=== PATIENT | female | born 1950 | race Caucasian/White ===

== ENCOUNTER → 2020-10-10 | Outpatient (CLI) | payer MEDICARE | END | disposition home or self-care (01) | LOC: STAR 11:13 | PROVIDERS: ATTEND Internal Medicine Gastroenterology | DX: Z01.818 Encounter for other preprocedural examination (principal); D12.0 Benign neoplasm of cecum | CPT/HCPCS: 93005 ==

== ENCOUNTER 2020-10-18 07:10 | Day surgery (SDC) | payer MEDICARE ==
[~2020-10-18] VITALS: Ht 165.1 cm; Wt 110.4 kg
[2020-10-18] MEDS ORDERED: CHLORHEXIDINE 15 ML UDC ONE (07:25)
[2020-10-18] MEDS ORDERED: LACTATED RINGERS 1,000 ML IV SCH (07:30)
[2020-10-18] MEDS ORDERED: CHLORHEXIDINE 15 ML UDC PO ONE (07:30)
[2020-10-18] MEDS ORDERED: PROPOFOL 50 ML ONE (08:19)
[2020-10-18] MEDS ORDERED: SIMETHICONE DROPS 40 MG/0.6 ML BOTTLE ONE (09:15)
[2020-10-18] MEDS ORDERED: KETOROLAC 30 MG/1 ML IV PRN (09:30)
[2020-10-18] MEDS ORDERED: ONDANSETRON 2MG/ML, 2ML IVPush PRN (09:30)
[2020-10-18] MEDS ORDERED: FENTANYL PF 100 MCG/2ML IV PRN (09:30)
[2020-10-18] MEDS ORDERED: ACETAMINOPHEN 325 MG TABLET PO PRN (09:30)
[2020-10-18] MEDS ORDERED: MEPERIDINE/PF 25MG/0.5ML IVPush PRN (09:30)
== END 2020-10-18 12:15 | disposition home or self-care (01) ==
LOC: OUT 07:10
PROVIDERS: ATTEND Internal Medicine Gastroenterology
DX: D12.0 Benign neoplasm of cecum (principal); K64.8 Other hemorrhoids; K57.30 Diverticulosis of large intestine without perforation or abscess without bleeding; E66.01 Morbid (severe) obesity due to excess calories; Z20.822 Contact with and (suspected) exposure to COVID-19; Z79.899 Other long term (current) drug therapy
CPT/HCPCS: 45381; 45385; 88305; J2704; J7120; U0003; U0005

== ENCOUNTER → 2020-11-22 | Outpatient (CLI) | payer MEDICARE | END | disposition home or self-care (01) | LOC: STAR 15:33 | PROVIDERS: ATTEND Surgery | DX: Z20.822 Contact with and (suspected) exposure to COVID-19 (principal) | CPT/HCPCS: U0003; U0005 ==

== ENCOUNTER 2020-11-26 10:08 | Day surgery (SDC) | payer MEDICARE ==
[~2020-11-26] VITALS: Ht 165.1 cm; Wt 112.7 kg
[~2020-11-26 10:08] MED LIST: BUPIVACAINE/PF 0.25% ONE; ISOSULFAN BLUE 10 MG/ML, 5ML IV ONE
[2020-11-26] MEDS ORDERED: no meds per pt (10:44)
[2020-11-26] MEDS ORDERED: CHLORHEXIDINE 15 ML UDC ONE (10:49)
[2020-11-26] MEDS ORDERED: LACTATED RINGERS 1,000 ML IV SCH (11:00)
[2020-11-26] MEDS ORDERED: CHLORHEXIDINE 15 ML UDC PO ONE (11:00)
[2020-11-26 11:01] VITALS: BP 139/88
[2020-11-26] MEDS ORDERED: MIDAZOLAM 1 MG/ML, 2ML ONE (11:52)
[2020-11-26] MEDS ORDERED: PROPOFOL 50 ML ONE (11:52)
[2020-11-26] MEDS ORDERED: FENTANYL PF 250 MCG/5ML ONE (11:52)
[2020-11-26] MEDS ORDERED: DEXAMETHASONE 4 MG/ML, 1ML ONE (12:27)
[2020-11-26] MEDS ORDERED: ONDANSETRON 2MG/ML, 2ML ONE (12:27)
[2020-11-26] MEDS ORDERED: PROPOFOL 10 MG/ML, 20ML ONE (12:27)
[2020-11-26] MEDS ORDERED: MEPERIDINE/PF 25MG/0.5ML IVPush PRN (12:30)
[2020-11-26] MEDS ORDERED: EPHEDRINE 50 MG/ML, 1ML IM PRN (12:30)
[2020-11-26] MEDS ORDERED: EPHEDRINE 50 MG/ML, 1ML IVPush PRN (12:30)
[2020-11-26] MEDS ORDERED: ONDANSETRON 2MG/ML, 2ML IVPush PRN (12:30)
[2020-11-26] MEDS ORDERED: PROMETHAZINE 25 MG/ML, 1ML IVPush PRN (12:30)
[2020-11-26] MEDS ORDERED: HYDROmorphone 1 MG/ML, 1ML INJ IVPush PRN (12:30)
[2020-11-26] MEDS ORDERED: DIPHENHYDRAMINE 50 MG/ML, 1ML IVPush PRN (12:30)
[2020-11-26] MEDS ORDERED: LABETALOL 5MG/ML, 20ML IV PRN (12:30)
[2020-11-26] MEDS ORDERED: FENTANYL PF 100 MCG/2ML IV PRN (12:30)
[2020-11-26] MEDS ORDERED: DIAZEPAM 5 MG/ML, 2ML IVPush PRN (12:30)
[2020-11-26] MEDS ORDERED: ACETAMINOPHEN 325 MG TABLET PO PRN (12:30)
[2020-11-26] MEDS ORDERED: ACETAMINOPHEN 650 MG/20.3 ML UDC ONE (13:09)
[2020-11-26] MEDS ORDERED: OXYcodone 5 MG/5 ML ORAL.SOL UDC ONE ×2 (13:09→13:13)
[2020-11-26] MEDS: OXYcodone 5 MG/5 ML ORAL.SOL UDC PO PRN ×2 (13:10→13:15)
[2020-11-26] MEDS ORDERED: FENTANYL PF 100 MCG/2ML ONE (13:13)
== END 2020-11-26 14:05 | disposition home or self-care (01) ==
LOC: OUT 10:08
PROVIDERS: ATTEND Surgery
DX: R59.0 Localized enlarged lymph nodes (principal); C77.3 Secondary and unspecified malignant neoplasm of axilla and upper limb lymph nodes; C50.919 Malignant neoplasm of unspecified site of unspecified female breast; E78.5 Hyperlipidemia, unspecified; G47.00 Insomnia, unspecified; E66.01 Morbid (severe) obesity due to excess calories; Z17.0 Estrogen receptor positive status [ER+]; Z68.41 Body mass index [BMI] 40.0-44.9, adult; Z98.890 Other specified postprocedural states; Z91.013 Allergy to seafood; Z92.3 Personal history of irradiation; Z80.52 Family history of malignant neoplasm of bladder; Z80.59 Family history of malignant neoplasm of other urinary tract organ; Z82.3 Family history of stroke
CPT/HCPCS: 38525; 88305; J1100; J2250; J2405; J2704; J3010; J7120

== ENCOUNTER 2020-12-27 09:16 | Outpatient (CLI) | payer MEDICARE ==
[~2020-12-27 09:16] MED LIST changes: -BUPIVACAINE/PF 0.25% ONE; -ISOSULFAN BLUE 10 MG/ML, 5ML IV ONE; +no meds per pt
== END 2020-12-27 23:59 | disposition home or self-care (01) ==
LOC: ROC 09:16
PROVIDERS: ATTEND Radiology Radiation Oncology
DX: C50.511 Malignant neoplasm of lower-outer quadrant of right female breast (principal); Z17.0 Estrogen receptor positive status [ER+]; E78.5 Hyperlipidemia, unspecified; E66.01 Morbid (severe) obesity due to excess calories; Z68.41 Body mass index [BMI] 40.0-44.9, adult; Z98.890 Other specified postprocedural states
CPT/HCPCS: 99214; G0463